=== PATIENT | female | born 1985 | race Caucasian/White ===

== ENCOUNTER 2016-05-27 12:41 | Emergency (ER) | payer SELFPAY ==
[~2016-05-27] VITALS: Ht 152.4 cm; Wt 72.0 kg
[~2016-05-27 12:41] MED LIST: ACET500T98 PO; CIPR500T4 PO; DOXY100T20 PO; IBUP-1542 PO; IRON18TA PO; PREN1TAB49 BC
[2016-05-27 12:49] VITALS: Ht 152.4 cm; Wt 72.0 kg
[2016-05-27] MEDS ORDERED: ONDANSETRON 4 MG INJ IV STA (13:19)
[2016-05-27] MEDS ORDERED: SOD CHLORIDE 0.9% 100 ML IV STA (13:19)
[2016-05-27] MEDS ORDERED: HYDROmorphONE 1 MG/ML SYG IV STA (13:19)
[2016-05-27] MEDS ORDERED: ACETAMINOPHEN 325 MG TAB PO ONE (13:30)
[2016-05-27 13:44] LABS: URINE BLOOD (Dip) POC 2+ (NEGATIVE)
[2016-05-27] MEDS ORDERED: SOD CHLORIDE 0.9% 1,000 ML IV ONE (14:00)
[2016-05-27 14:05] LABS: ADD SCAN DIFF NO
[2016-05-27 14:11] LABS: ABNORMAL IP MESSAGE 1; BASOPHILS % 0.2 % (0.0-2.0); HEMATOCRIT 36.5 % (37.0-47.0); HEMOGLOBIN 12.7 g/dl (12.0-16.0); LYMPHOCYTES # 0.8 10^3/ul (0.8-2.9); LYMPHOCYTES % 4.1 % (15.0-51.0); MEAN CORPUSCULAR HEMOGLOBIN 30.4 pg (29.0-33.0); MEAN CORPUSCULAR HGB CONC 34.8 g/dl (32.0-37.0); MEAN CORPUSCULAR VOLUME 87.3 fl (82.0-101.0); MEAN PLATELET VOLUME 10.5 fl (7.4-10.4); MONOCYTE # 1.5 10^3/ul (0.3-0.9); MONOCYTES % 8.3 % (0.0-11.0); NEUTROPHIL # 16.1 10^3/ul (1.6-7.5); NEUTROPHILS % 86.6 % (39.0-77.0); PLATELET COUNT 272 10^3/UL (140-415); RED BLOOD COUNT 4.18 10^6/ul (4.20-5.40); RED CELL DISTRIBUTION WIDTH 11.6 % (11.5-14.5); WHITE BLOOD COUNT 18.5 10^3/ul (4.8-10.8)
[2016-05-27 14:12] LABS: ADD UMIC YES; URINE BILIRUBIN (Dip) NEGATIVE (NEGATIVE); URINE BLOOD (Dip) 3+ (NEGATIVE); URINE COLOR LT. YELLOW (YELLOW); URINE GLUCOSE (Dip) NEGATIVE (NEGATIVE); URINE KETONES (Dip) 3+ (NEGATIVE); URINE LEUKOCYTE ESTERASE (Dip) 1+ (NEGATIVE); URINE NITRITE (Dip) POSITIVE (NEGATIVE); URINE TOTAL PROTEIN (Dip) TRACE (NEGATIVE); URINE UROBILINOGEN (Dip) 1.0 E.U./dL (0.1-1.0)
[2016-05-27 14:23] LABS: BACTERIA,URINE MANY; SQUAMOUS EPITHELIAL CELL,UR MODERATE
[2016-05-27 14:27] LABS: ALBUMIN/GLOBULIN RATIO 1.19
--- NOTE | 2016-05-27 14:29 | RADRPT ---
PROCEDURE: US Pelvis. CLINICAL INDICATION: 31-year-old female with right-sided pelvic pain. TECHNIQUE: Multiple sonographic images of the pelvis were obtained utilizing a transabdominal and endovaginal technique. The images were reviewed on a PACS workstation. COMPARISON: No. FINDINGS: The uterus is visualized and measures the uterus measured 9.9 sagittal by 4.7 cm AP by 5.3 cm transv erse. The endometrial echo complex is normal and measures 1.1 cm. There is a small amount of free fl uid adjacent to the right ovary. The right ovary has a normal echotexture and measures 4.5 x 2.4 by 3.8 cm there is a complex right ovarian cyst measuring 2.4 x 1.6 cm with a surrounding ring of fire. Findings consistent with a hemorrhagic right ovarian cyst. There is normal blood flow to the righ t ovary . The left ovary has a normal echotexture and measures 2.7 x 1.9 by 2.1 cm. No adnexal mas ses are noted. IMPRESSION: 1. Hemorrhagic right ovarian cyst with some fluid adjacent to the right ovary. 2. Normal left ovary and normal endometrial thickness. RPTAT:AAJJ Physician Olivia Date Time Electronically viewed and signed by Physician Olivia on 05/27/2016 14:29 GAIL/
[2016-05-27 14:35] LABS: ALBUMIN 4.3 g/dl (3.3-4.9)
[2016-05-27 14:36] LABS: POTASSIUM 3.7 mmol/L (3.5-5.1)
[2016-05-27 14:38] LABS: BILIRUBIN,INDIRECT 0.9 mg/dl (0-1.1); BILIRUBIN,TOTAL 0.9 mg/dl (0.2-1.3); CREATININE 0.92 mg/dl (0.44-1.00)
[2016-05-27 14:39] LABS: CALCIUM 9.2 mg/dl (8.4-10.2); TOTAL PROTEIN 7.9 g/dl (6.1-8.1)
[2016-05-27] MEDS ORDERED: SOD CHLORIDE 0.9% 100 ML ONE (15:25)
[2016-05-27] MEDS ORDERED: IOHEXOL 300MG/ML 150 ML BTL ONE (15:25)
--- NOTE | 2016-05-27 16:00 | RADRPT ---
PROCEDURE: CT Abdomen and Pelvis with contrast. CLINICAL INDICATION: Abdominal and pelvic pain. Generalized weakness. Nausea and vomiting. TECHNIQUE: CT scan of the abdomen and pelvis with contrast was performed. The patient was scanned following the uncomplicated intravenous administration of 100 cc of Omnipaque-300. Coronal and sag ittal reformatted images were obtained from the axial source images. Images were reviewed on a high- resolution PACS workstation. Total exam DLP is 835.80 mGy-cm. CTDIvol is 14.81 mGy. One or more o f the following dose reduction techniques were used: Automated exposure control, adjustment of the m A and/or kV according to patient size, use of iterative reconstruction technique. COMPARISON: Pelvic ultrasound done earlier the same day which demonstrated a hemorrhagic right ova danny cyst measuring 2.4 x 1.6 cm, and no other abnormality. FINDINGS: The lung bases are normal. There is no pleural effusion. The liver is normal in size and attenuation. There is no focal hepatic lesion. The gallbladder and bile ducts are normal. The spleen is normal in size. There is no focal splenic lesion. Both adrenals are normal with no enlargement or mass. The pancreas is unremarkable with no mass or evidence of pancreatitis. The right kidney demonstrates normal contrast enhancement. There is mild patchy decreased enhanceme nt of the lower left kidney with mild surrounding edema consistent with pyelonephritis. There is al so mild thickening and enhancement of the left renal pelvis and proximal ureter urothelium consisten t with an infectious process. There is no renal mass or hydronephrosis. The abdominal aorta is not dilated. There is no retroperitoneal lymphadenopathy or mass. There is no pelvic lymphadenopathy. Right ovarian cyst is visualized as seen on ultrasound. There is no other pelvic mass. The bladder and distal ureters are normal. The periappendiceal region is unremarkable with no evidence of appendicitis. The bowel and mesentery are normal. There is no free fluid or free gas. There is a left pars defect at L5. The right pars interarticularis is normal. The osseous structur es are otherwise unremarkable. IMPRESSION: 1. Mild patchy decreased enhancement of the lower left kidney with surrounding edema consistent wit h pyelonephritis. Clinical correlation advised. 2. Right ovarian cyst as seen on ultrasound. 3. Left pars defect at L5. 4. Otherwise unremarkable study. RPTAT: QQ .Jamie Fuentes MD, MD Date Time Electronically viewed and signed by .Jamie Fuentes MD, on 05/27/2016 16:00 .R/
[2016-05-27] MEDS ORDERED: CEFTRIAXONE 1 GM/50 ML (PMX) 50 ML IVPB ONE (16:30)
[2016-05-27] MEDS ORDERED: ONDA4TAB8 PO (16:43)
[2016-05-27] MEDS ORDERED: HYDR-906 PO (16:43)
[2016-05-27] MEDS ORDERED: IBUP-1542 PO (16:43)
[2016-05-27] MEDS ORDERED: CIPR500T4 PO (16:43)
[2016-05-27 17:10] VITALS: BP 107/58; PULSE 100; RESP 17; TEMP 100.2
--- NOTE | 2016-05-27 17:17 | ERD ---
ER Documentation Chief Complaint Date/Time DATE: 05/27/16 TIME: 17:10 Chief Complaint VOMITTING AND ABDOMINAL PAIN X 2 WEEKS HPI This is a 31-year-old female who comes to emergency room complaining of abdominal pain, generalized weakness, nausea and vomiting for 2 weeks. Patient also complained of fever and diarrhea last week that has been resolved. Patient denies dysuria but states that since yesterday, her urine is yellow and foul-smelling. Upon arrival, patient denies any diarrhea, shortness of breath, headache, wheezing or sore throat. Denies any recent travel or sick contacts Patient took NyQuil for symptom relief. Patient is with C- section on 3 children. Last menstrual period was 2 months ago, patient states that she usually has her period every 6 months. Patient is sexually active with a male partner but denies any vaginal bleeding or discharge. ROS All systems reviewed and are negative except as per history of present illness. Medications Home Meds Active Scripts Ondansetron Hcl* (Zofran*) 4 Mg Tablet, 4 MG PO Q6H for NAUSEA AND/OR VOMITING, #30 TAB Prov:ALENA JAIME 05/27/16 Hydrocodone/Acetaminophen ([place] 5-325 Tablet) 1 Each Tablet, 1 TAB PO Q6H Y for PAIN, #10 TAB Prov:ALENA JAIME 05/27/16 Ibuprofen* (Motrin*) 600 Mg Tab, 600 MG PO Q6H Y for PAIN AND OR ELEVATED TEMP, #30 TAB Prov:ALENA JAIME 05/27/16 Ciprofloxacin Hcl* (Ciprofloxacin Hcl*) 500 Mg Tablet, 500 MG PO BID for 7 Days , TAB Prov:ALENA JAIME 05/27/16 Ibuprofen* (Motrin*) 600 Mg Tab, 600 MG PO Q6, #30 TAB Prov:BITA MULLER PA-C 01/18/16 Doxycycline Hyclate* (Doxycycline Hyclate*) 100 Mg Tablet.dr, 100 MG PO BID for 7 Days, TAB do not go out in the sun while taking this medication as it can lead to easy sunburns. Prov:BITA MULLER PA-C 01/18/16 Ciprofloxacin Hcl* (Ciprofloxacin Hcl*) 500 Mg Tablet, 500 MG PO BID for 7 Days , TAB Prov:JAMIE HARRIS MD 09/08/14 Acetaminophen (Tylenol) 500 Mg Tab, 500 MG PO q 4 hrs for FEVER, #20 TAB Prov:JAMIE HARRIS MD 09/08/14 Ibuprofen* (Motrin*) 600 Mg Tab, 600 MG PO Q6, #20 TAB Prov:JAMIE HARRIS MD 09/08/14 Reported Medications Iron (Iron) 18 Mg Tablet, 18 MG PO DAILY 10/23/10 Vits W-Ca,Fe,Fa(<1MG) () 1 Tab Tablet, 1 TAB BC DAILY 10/23/10 Allergies Allergies: Coded Allergies: Penicillins (Unverified Allergy, Intermediate, RASH, 01/18/16) PMhx/Soc Medical and Surgical Hx: pt denies Medical Hx History of Surgery: Yes ( x3) Anesthesia Reaction: No Hx Neurological Disorder: No Hx Respiratory Disorders: No Hx Cardiac Disorders: No Hx Psychiatric Problems: No Hx Miscellaneous Medical Probl: No Hx Alcohol Use: No Hx Substance Use: No Hx Tobacco Use: No Physical Exam Vitals Vital Signs Date Time Temp Pulse Resp B/P Pulse Ox O2 Delivery O2 Flow Rate FiO2 05/27/16 17:10 100.2 100 17 107/58 100 Room Air 05/27/16 12:49 104.6 116 26 122/72 100 Physical Exam Physical Exam CONST: Well-developed, well-nourished, in no acute distress. Nontoxic in appearance. HEENT: Atraumatic. Normal conjunctiva. EOM intact. TM intact. External ear is normal. Clear oropharnyx without erythema. No uvular deviation. Moist mucous membranes. Supple neck. No meningismus. No submandibular induration. RESP: Clear to auscultation bilaterally. No wheezing. CARDIO: Regular rate and rhythm, no murmurs. ABD: Soft, non distended. Localized tenderness inferior to the periumbilical area . Hyperactive bowel sounds. No McBurney's point tenderness. No guarding or rigidity. No peritoneal signs. SKIN: No petechiae or rashes. BACK: No midline or flank tenderness. EXT: No cyanosis or edema. Distal pulses equal and bilateral. NEURO: Awake and alert, appropriate for age. Result Diagram: 05/27/16 1350 05/27/16 1350 Results 24 hrs Laboratory Tests Test 05/27/16 13:43 05/27/16 13:50 Bedside Urine Blood 2+ Bedside Urine Glucose (UA) Negative Bedside Urine Ketones (LAB) 4+ Bedside Urine Leukocyte Esterase (L 1+ Bedside Urine Nitrite (LAB) Positive Bedside Urine Protein (LAB) 1+ Bedside Urine pH (LAB) 6.0 Alanine Aminotransferase (ALT/SGPT) 59IU/L Albumin 4.3g/dl Albumin/Globulin Ratio 1.19 Alkaline Phosphatase 103IU/L Anion Gap 22 Aspartate Amino Transf (AST/SGOT) 65IU/L Basophils # 0.010^3/ul Basophils % 0.2% Blood Urea Nitrogen 13mg/dl Calcium Level 9.2mg/dl Carbon Dioxide Level 23mmol/L Chloride Level 97mmol/L Creatinine 0.92mg/dl Direct Bilirubin 0.00mg/dl Eosinophils # 0.010^3/ul Eosinophils % 0.0% Globulin 3.60g/dl Glucose Level 91mg/dl Hematocrit 36.5% Hemoglobin 12.7g/dl Indirect Bilirubin 0.9mg/dl Lipase 52U/L Lymphocytes # 0.810^3/ul Lymphocytes % 4.1% Mean Corpuscular Hemoglobin 30.4pg Mean Corpuscular Hemoglobin Concent 34.8g/dl Mean Corpuscular Volume 87.3fl Mean Platelet Volume 10.5fl Monocytes # 1.510^3/ul Monocytes % 8.3% Neutrophils # 16.110^3/ul Neutrophils % 86.6% Nucleated Red Blood Cells # 0.010^3/ul Nucleated Red Blood Cells % 0.0/100WBC Platelet Count 50177^3/UL Potassium Level 3.7mmol/L Red Blood Count 4.1810^6/ul Red Cell Distribution Width 11.6% Sodium Level 138mmol/L Total Bilirubin 0.9mg/dl Total Protein 7.9g/dl Urine Bacteria MANY Urine Bilirubin NEGATIVE Urine Clarity SLIGHTLY CLOUDY Urine Color LT. YELLOW Urine Glucose NEGATIVE% Urine Hemoglobin 3+ Urine Ketones 3+ Urine Leukocyte Esterase 1+ Urine Microscopic RBC 5-10/HPF Urine Microscopic WBC 10-25/HPF Urine Nitrite POSITIVE Urine Specific [place] 1.010 Urine Squamous Epithelial Cells MODERATE Urine Total Protein TRACE Urine Urobilinogen 1.0 E.U./dL Urine pH 6.0 White Blood Count 18.510^3/ul Current Medications Medications (Trade) Dose Ordered Sig/Giovana Route PRN Reason Start Time Stop Time Status Last Admin Dose Admin Sodium Chloride (NS) 100 ml @ 100 mls/hr Q1H STAT IV 05/27/16 13:19 05/27/16 13:46 DC Hydromorphone HCl (Dilaudid) 1 mg ONCE STAT IV 05/27/16 13:19 05/27/16 13:28 DC 05/27/16 13:39 Ondansetron HCl (Zofran Inj) 4 mg ONCE STAT IV 05/27/16 13:19 05/27/16 13:28 DC 05/27/16 13:39 Acetaminophen 650 mg 650 mg ONCE ONCE PO 05/27/16 13:30 05/27/16 13:31 DC 05/27/16 13:39 Sodium Chloride (NS) 1,000 ml @ 1,000 mls/hr Q1H ONCE IV 05/27/16 14:00 05/27/16 14:59 DC 05/27/16 13:50 IV Flush 10 ml 10 ml STK-MED ONCE .ROUTE 05/27/16 15:25 05/27/16 15:26 DC 05/27/16 15:46 Sodium Chloride (NS) 100 ml @ ud STK-MED ONCE .ROUTE 05/27/16 15:25 05/27/16 15:26 DC 05/27/16 15:46 Iohexol 150 ml 150 ml STK-MED ONCE .ROUTE 05/27/16 15:25 05/27/16 15:26 DC 05/27/16 15:47 Ceftriaxone Sodium (Rocephin) 50 ml @ 100 mls/hr ONCE ONCE IVPB 05/27/16 16:30 05/27/16 17:02 DC 05/27/16 17:06 PROCEDURE: US Pelvis. CLINICAL INDICATION: 31-year-old female with right-sided pelvic pain. TECHNIQUE: Multiple sonographic images of the pelvis were obtained utilizing a transabdominal and endovaginal technique. The images were reviewed on a PACS workstation. COMPARISON: No. FINDINGS: The uterus is visualized and measures the uterus measured 9.9 sagittal by 4.7 cm AP by 5.3 cm transverse. The endometrial echo complex is normal and measures 1.1 cm. There is a small amount of free fluid adjacent to the right ovary. The right ovary has a normal echotexture and measures 4.5 x 2.4 by 3.8 cm there is a complex right ovarian cyst measuring 2.4 x 1.6 cm with a surrounding ring of fire. Findings consistent with a hemorrhagic right ovarian cyst. There is normal blood flow to the right ovary . The left ovary has a normal echotexture and measures 2.7 x 1.9 by 2.1 cm. No adnexal masses are noted. IMPRESSION: 1. Hemorrhagic right ovarian cyst with some fluid adjacent to the right ovary. 2. Normal left ovary and normal endometrial thickness. RPTAT:AAJJ Physician Olivia Date Time Electronically viewed and signed by Physician Olivia on 05/27/2016 14:29 PROCEDURE: CT Abdomen and Pelvis with contrast. CLINICAL INDICATION: Abdominal and pelvic pain. Generalized weakness. Nausea and vomiting. TECHNIQUE: CT scan of the abdomen and pelvis with contrast was performed. The patient was scanned following the uncomplicated intravenous administration of 100 cc of Omnipaque-300. Coronal and sagittal reformatted images were obtained from the axial source images. Images were reviewed on a high- resolution PACS workstation. Total exam DLP is 835.80 mGy-cm. CTDIvol is 14.81 mGy. One or more of the following dose reduction techniques were used: Automated exposure control, adjustment of the mA and/or kV according to patient size, use of iterative reconstruction technique. COMPARISON: Pelvic ultrasound done earlier the same day which demonstrated a hemorrhagic right ovarian cyst measuring 2.4 x 1.6 cm, and no other abnormality. FINDINGS: The lung bases are normal. There is no pleural effusion. The liver is normal in size and attenuation. There is no focal hepatic lesion. The gallbladder and bile ducts are normal. The spleen is normal in size. There is no focal splenic lesion. Both adrenals are normal with no enlargement or mass. The pancreas is unremarkable with no mass or evidence of pancreatitis. The right kidney demonstrates normal contrast enhancement. There is mild patchy decreased enhancement of the lower left kidney with mild surrounding edema consistent with pyelonephritis. There is also mild thickening and enhancement of the left renal pelvis and proximal ureter urothelium consistent with an infectious process. There is no renal mass or hydronephrosis. The abdominal aorta is not dilated. There is no retroperitoneal lymphadenopathy or mass. There is no pelvic lymphadenopathy. Right ovarian cyst is visualized as seen on ultrasound. There is no other pelvic mass. The bladder and distal ureters are normal. The periappendiceal region is unremarkable with no evidence of appendicitis. The bowel and mesentery are normal. There is no free fluid or free gas. There is a left pars defect at L5. The right pars interarticularis is normal. The osseous structures are otherwise unremarkable. IMPRESSION: 1. Mild patchy decreased enhancement of the lower left kidney with surrounding edema consistent with pyelonephritis. Clinical correlation advised. 2. Right ovarian cyst as seen on ultrasound. 3. Left pars defect at L5. 4. Otherwise unremarkable study. RPTAT: QQ .Jamie Fuentes MD, MD Date Time Electronically viewed and signed by .Jamie Feuntes MD, MD on 05/27/2016 16:00 Procedures/[facility] EMERGENCY DEPARTMENT COURSE/MEDICAL DECISION MAKING This is a 31-year-old female who comes to the emergency room secondary to complaints of abdominal pain, generalized weakness, nausea and vomiting for 2 weeks. Patient also had episodes of of diarrhea and fever 1 week ago. The patient was given 1 L NS IV bolus ,1 mg Dilaudid IV, 4 mg Zofran IV and Tylenol po in the department. On re-evaluation, the patient's symptoms improved and temperature improved from 104.6 to 100.2 Lab results reviewed with abnormal values: WBC of 18.5, neutrophils of 86.6%, positive urine nitrites, +1 urine leukocyte, positive urine bacteria. Negative on POCT. Pelvic ultrasound and CT abdomen/ pelvis were done and interpreted by a radiologist. Results shows hemorrhagic right ovarian cyst and left pyelonephritis. Case was presented to Dr. Harris and he advised to administer IV antibiotics and then discharge the patient with po antibiotics. Rocephin 1gm IVPB x1 was given and urine culture was ordered. My primary diagnosis is pyelonephritis. Secondary diagnosis nausea, vomiting and abdominal pain Differential diagnoses considered but not limited to acute appendicitis, diverticulitis, pancreatitis, cholecystitis, gastritis, pyelonephritis, UTI, constipation, inflammatory bowel disease, ectopic , ovarian torsion. Pt is hemodynamically stable upon reassessment. The patient was discharged for outpatient management with a prescription for Cipro, [place], Zofran and ibuprofen. The patient was advised to followup with their PMD in 1-2 days and to return to the Emergency Department if there are any new or worsening symptoms. The patient understood and agreed with the diagnosis, treatment and plan. Patient is stable for discharge at this time. Departure Diagnosis: Primary Impression: Pyelonephritis Additional Impressions: Nausea and vomiting Vomiting type: unspecified Vomiting Intractability: intractable Qualified Code: R11.2 - Intractable vomiting with nausea, unspecified vomiting type Abdominal pain Abdominal location: lower abdomen, unspecified Qualified Code: R10.30 - Lower abdominal pain Condition: Stable Patient Instructions: Abdominal Pain, Nausea and Vomiting-Adult, Pyelonephritis , Female (Adult) [facility] Usted se delacruz hecho un examen mdico de control que le indica que no est en riley condicin que requiera tratamiento urgente en el Departamento de Emergencia. Un estudio ms profundo y el tratamiento de bowman condicin pueden esperar sin ningn riesgo hasta que usted sea atendida/o en el consultorio de bowman mdico o riley cl zak. Es responsabilidad suya arreglar riley evan para el seguimiento del jack. MANEJO DE CONDICIONES NO URGENTES EN EL FUTURO 1) Si usted tiene un mdico de atencin primaria: Usted debera llamar a bowman mdico de atencin primaria antes de venir al departamento de emergencia. Despus de las horas de consultorio, bowman doctor o bowman asociado/a est disponible por telfono. El mdico o enfermero de kolby en el servicio telefnico puede asesorarle por sami medio para atender el problema, o jack contrario se puede programar riley evan. 2) Si usted no tiene un mdico de atencin primaria: Llame al mdico o clnica de referencia que aparece abajo jonny las horas de consultorio para hacer riley evan para que le vean. CLINICAS: [facility] [phone] [facility] [phone] [facility] [phone] [facility] [phone] [facility]. [place] [phone] [id number] [facility]. [phone] [facility]. [facility] () ted se delacruz hecho un examen mdico de control que le indica que no est en riley condicin que requiera tratamiento urgente en el Departamento de Emergencia. Un estudio ms profundo y el tratamiento de bowman condicin pueden esperar sin ningn riesgo hasta que ted sea atendida/o en el consultorio de bowman mdico o riley cl zak. Es responsabilidad suya arreglar riley evan para el seguimiento del jack. MANEJO DE CONDICIONES NO URGENTES EN EL FUTURO 1) Si usted tiene un mdico de atencin primaria: ted debera llamar a bowman mdico de atencin primaria antes de venir al departamento de emergencia. Despus de las horas de consultorio, bowman doctor o bowman asociado/a est disponible por telfono. El mdico o enfermero de kolby en el servicio telefnico puede asesorarle por sami medio para atender el problema, o jack contrario se puede programar riley evan. 2) Si usted no tiene un mdico de atencin primaria: Llame al mdico o condado institucions de referencia que aparece abajo jonny las horas de consultorio para hacer riley evan para que le vean. SI USTED NO PUEDE PAGAR PARA OMID UN MEDICO puede ir a: [facility] [address] [place] [address] [facility] [address] [place] [address] [facility] [address] [place] [address] [facility] [address] [place] [address] Additional Instructions: Seguimiento con bowman mdico de atencin primaria en 1-2 marinelli. Volver al Departamento de la emergencia inmediatamente si tiene alguno nuevo o empeoramiento de los sntomas, incontrolada fiebre u otros sntomas inexplicables. [place] todos los medicamentos laureen lo indique. ALENA JAIME May 27, 2016 17:17
== END 2016-05-27 17:50 | disposition home or self-care (01) ==
LOC: FTE 12:41
DX: N12 Tubulo-interstitial nephritis, not specified as acute or chronic (principal); R11.2 Nausea with vomiting, unspecified; R10.30 Lower abdominal pain, unspecified; R10.2 Pelvic and perineal pain
CPT/HCPCS: 36415; 74177; 76830; 76856; 80053; 81001; 83690; 85025; 87086; 96361; 96365; 96375; 99285; J0696; J1170; J2405; J7030; Q9967; 81003; J7040